=== PATIENT | male | born 1970 | race African-American/Black ===

== ENCOUNTER 2018-04-20 19:25 | Inpatient (IN) | payer SELFPAY ==
[~2018-04-20] VITALS: Ht 177.8 cm; Wt 71.7 kg
[2018-04-20] MEDS ORDERED: HYDRALAZINE 20MG/ML VIAL IV ONE ×2 (19:45→21:15)
[2018-04-20] MEDS ORDERED: METOCLOPRAMIDE HCL 10MG/2ML VIAL IV ONE (20:15)
[2018-04-20] MEDS ORDERED: DIPHENHYDRAMINE 50MG/ML VIAL IV ONE (20:15)
[2018-04-20] MEDS ORDERED: KETOROLAC 15MG/ML VIAL IV ONE (20:15)
[2018-04-20 20:30] LABS: HEMATOCRIT. 34.1 % (42.0-52.0); HEMOGLOBIN. 10.5 g/dL (14.0-18.0); MEAN CORPUSCULAR HEMOGLOBIN 22.8 pg (28.0-32.0); MEAN PLATELET VOLUME 9.1 fl (7.4-10.4); PLATELET 201 x1000/uL (130-400); RED CELL DISTRIBUTION WIDTH 14.4 % (11.6-14.6)
[2018-04-20 20:36] LABS: CHLORIDE 111 mEq/L (98-107)
[2018-04-20 21:07] LABS: PLATELET ESTIMATE NORMAL
[2018-04-20] MEDS ORDERED: ASPIRIN 81MG TABLET PO ONE (21:15)
[2018-04-20] MEDS ORDERED: CLONIDINE 0.2MG TABLET PO ONE (22:15)
[2018-04-21] VITALS (12 sets, daily range): BP systolic 146–183; BP diastolic 71–109
[2018-04-21] MEDS ORDERED: ONDANSETRON HCL 4MG/2ML INJ IV PRN (01:00)
[2018-04-21] MEDS ORDERED: DIPHENHYDRAMINE 50MG/ML VIAL IV PRN (01:00)
[2018-04-21] MEDS ORDERED: HYDRALAZINE 20MG/ML VIAL IV PRN (01:00)
[2018-04-21] MEDS ORDERED: MAGNESIUM/ALUMINUM HYDROXIDE/SIMETHICONE 30ML UDC PO PRN (01:00)
[2018-04-21] MEDS: LOSARTAN POTASSIUM 100 MG TABLET PO SCH ×2 (01:51→08:48)
[2018-04-21] MEDS: NIFEDIPINE XL 90MG TAB PO SCH ×2 (01:51→08:48)
[2018-04-21] MEDS: LABETALOL HCL 100MG TABLET PO SCH ×3 (01:51→21:22)
[2018-04-21] MEDS: SODIUM CHLORIDE 0.9% INJ 3ML FLUSH IVF SCH ×3 (05:40→21:26)
[2018-04-21] MEDS: MECLIZINE 25MG TABLET PO PRN (13:42)
[2018-04-21] MEDS: ASPIRIN 81MG EC TABLET PO SCH (18:57)
[2018-04-21] MEDS: FAMOTIDINE 20MG TABLET PO SCH (21:22)
[2018-04-22] VITALS (12 sets, daily range): BP systolic 130–176; BP diastolic 72–110
[2018-04-22] MEDS: SODIUM CHLORIDE 0.9% INJ 3ML FLUSH IVF SCH ×3 (06:47→22:24)
[2018-04-22] MEDS: LOSARTAN POTASSIUM 100 MG TABLET PO SCH (08:07)
[2018-04-22] MEDS: NIFEDIPINE XL 90MG TAB PO SCH (08:07)
[2018-04-22] MEDS: ASPIRIN 81MG EC TABLET PO SCH (08:07)
[2018-04-22] MEDS: LABETALOL HCL 100MG TABLET PO SCH ×2 (08:07→20:49)
[2018-04-22 08:17] LABS: BASOPHILS % 0.7 % (0.0-2.0); EOSINOPHILS % 1.9 % (0.0-5.0); HEMATOCRIT. 33.9 % (42.0-52.0); HEMOGLOBIN. 10.7 g/dL (14.0-18.0); LYMPHOCYTES % 18.6 % (20.0-50.0); MEAN CORPUSCULAR HEMOGLOBIN 23.3 pg (28.0-32.0); MEAN CORPUSCULAR VOLUME 73.9 fL (80.0-94.0); MEAN PLATELET VOLUME 9.6 fl (7.4-10.4); MONOCYTES % 7.7 % (2.0-8.0); NEUTROPHILS % 71.1 % (40.0-76.0); PLATELET 197 x1000/uL (130-400); RED BLOOD CELL COUNT 4.59 mill/uL (4.7-6.1); RED CELL DISTRIBUTION WIDTH 14.5 % (11.6-14.6)
[2018-04-22 08:40] LABS: CHLORIDE 108 mEq/L (98-107)
[2018-04-22] MEDS ORDERED: ASPIRIN 81MG EC TABLET PO SCH (09:00)
[2018-04-22] MEDS: MECLIZINE 25MG TABLET PO PRN (09:57)
[2018-04-22] MEDS: SEVELAMER CARBONATE 800 MG TABLET PO SCH ×2 (11:22→17:27)
[2018-04-22] MEDS: HYDRALAZINE HCL 25MG TABLET PO SCH ×2 (14:56→22:24)
[2018-04-22] MEDS: ENOXAPARIN 30MG/0.3ML SYR SUBCUT SCH (17:33)
[2018-04-22] MEDS: ACETAMINOPHEN 325MG TABLET PO PRN (19:43)
[2018-04-22] MEDS: FAMOTIDINE 20MG TABLET PO SCH (20:48)
[2018-04-22] MEDS: ATORVASTATIN CALCIUM 40MG TABLET PO SCH (20:48)
[2018-04-22] MEDS ORDERED: HYDRALAZINE HCL 50MG TABLET PO SCH (21:00)
[2018-04-23] VITALS (13 sets, daily range): BP systolic 136–170; BP diastolic 76–98
[2018-04-23] MEDS: HYDRALAZINE HCL 25MG TABLET PO SCH (06:18)
[2018-04-23] MEDS: SODIUM CHLORIDE 0.9% INJ 3ML FLUSH IVF SCH ×3 (06:18→22:07)
[2018-04-23 07:40] LABS: BASOPHILS % 0.6 % (0.0-2.0); EOSINOPHILS % 2.6 % (0.0-5.0); HEMATOCRIT. 33.8 % (42.0-52.0); HEMOGLOBIN. 10.6 g/dL (14.0-18.0); MEAN CORPUSCULAR HEMOGLOBIN 23.4 pg (28.0-32.0); MEAN CORPUSCULAR VOLUME 74.5 fL (80.0-94.0); MEAN PLATELET VOLUME 9.5 fl (7.4-10.4); MONOCYTES % 8.7 % (2.0-8.0); NEUTROPHILS % 64.1 % (40.0-76.0); PLATELET 183 x1000/uL (130-400); RED BLOOD CELL COUNT 4.54 mill/uL (4.7-6.1); RED CELL DISTRIBUTION WIDTH 14.1 % (11.6-14.6)
[2018-04-23] MEDS: NIFEDIPINE XL 90MG TAB PO SCH (08:10)
[2018-04-23] MEDS: ASPIRIN 81MG EC TABLET PO SCH (08:10)
[2018-04-23] MEDS: SEVELAMER CARBONATE 800 MG TABLET PO SCH ×3 (08:10→17:24)
[2018-04-23] MEDS: LABETALOL HCL 100MG TABLET PO SCH ×2 (08:11→21:16)
[2018-04-23 08:18] LABS: PHOSPHORUS 4.8 mg/dL (2.5-4.9)
[2018-04-23] MEDS: HYDRALAZINE HCL 50MG TABLET PO SCH ×2 (12:09→13:19)
[2018-04-23] MEDS: CALCIUM ACETATE 667MG CAPSULE PO SCH ×2 (12:09→17:24)
[2018-04-23] MEDS: CLONIDINE 0.2MG TABLET PO PRN (13:16)
[2018-04-23] MEDS: MECLIZINE 25MG TABLET PO PRN (14:35)
[2018-04-23] MEDS: ENOXAPARIN 30MG/0.3ML SYR SUBCUT SCH (17:24)
[2018-04-23] MEDS: ACETAMINOPHEN 325MG TABLET PO PRN (19:18)
[2018-04-23] MEDS: ATORVASTATIN CALCIUM 40MG TABLET PO SCH (21:15)
[2018-04-23] MEDS: FAMOTIDINE 20MG TABLET PO SCH (21:16)
[2018-04-23] MEDS: HYDRALAZINE HCL 100MG TABLET PO SCH (22:08)
[2018-04-24] VITALS (12 sets, daily range): BP systolic 147–161; BP diastolic 78–98
[2018-04-24] MEDS: HYDRALAZINE HCL 100MG TABLET PO SCH ×3 (06:16→21:49)
[2018-04-24] MEDS: SODIUM CHLORIDE 0.9% INJ 3ML FLUSH IVF SCH ×3 (06:17→21:21)
[2018-04-24 06:57] LABS: BASOPHILS % 0.7 % (0.0-2.0); HEMATOCRIT. 32.3 % (42.0-52.0); HEMOGLOBIN. 10.2 g/dL (14.0-18.0); LYMPHOCYTES % 25.8 % (20.0-50.0); MEAN CORPUSCULAR HEMOGLOBIN 23.1 pg (28.0-32.0); MEAN CORPUSCULAR VOLUME 73.1 fL (80.0-94.0); MEAN PLATELET VOLUME 9.1 fl (7.4-10.4); MONOCYTES % 9.6 % (2.0-8.0); NEUTROPHILS % 60.9 % (40.0-76.0); PLATELET 169 x1000/uL (130-400); RED BLOOD CELL COUNT 4.41 mill/uL (4.7-6.1); RED CELL DISTRIBUTION WIDTH 14.1 % (11.6-14.6)
[2018-04-24 08:46] LABS: PHOSPHORUS 4.6 mg/dL (2.5-4.9)
[2018-04-24] MEDS: NIFEDIPINE XL 90MG TAB PO SCH (09:14)
[2018-04-24] MEDS: SEVELAMER CARBONATE 800 MG TABLET PO SCH ×3 (09:14→17:17)
[2018-04-24] MEDS: ASPIRIN 81MG EC TABLET PO SCH (09:14)
[2018-04-24] MEDS: CALCIUM ACETATE 667MG CAPSULE PO SCH ×3 (09:14→17:17)
[2018-04-24] MEDS: LABETALOL HCL 100MG TABLET PO SCH ×2 (09:15→21:20)
[2018-04-24] MEDS: MECLIZINE 25MG TABLET PO PRN (11:23)
[2018-04-24] MEDS: CLONIDINE 0.2MG TABLET PO PRN (15:32)
[2018-04-24] MEDS: ENOXAPARIN 30MG/0.3ML SYR SUBCUT SCH (16:10)
[2018-04-24] MEDS: FAMOTIDINE 20MG TABLET PO SCH (21:19)
[2018-04-24] MEDS: ATORVASTATIN CALCIUM 40MG TABLET PO SCH (21:19)
[2018-04-25] VITALS (10 sets, daily range): BP systolic 130–155; BP diastolic 69–87
[2018-04-25] MEDS: HYDRALAZINE HCL 100MG TABLET PO SCH ×3 (06:39→21:11)
[2018-04-25] MEDS: SODIUM CHLORIDE 0.9% INJ 3ML FLUSH IVF SCH ×3 (06:40→21:23)
[2018-04-25 06:56] LABS: BASOPHILS % 0.5 % (0.0-2.0); EOSINOPHILS % 3.1 % (0.0-5.0); HEMATOCRIT. 30.5 % (42.0-52.0); HEMOGLOBIN. 9.8 g/dL (14.0-18.0); LYMPHOCYTES % 25.1 % (20.0-50.0); MEAN CORPUSCULAR HEMOGLOBIN 23.4 pg (28.0-32.0); MEAN CORPUSCULAR VOLUME 73.1 fL (80.0-94.0); MEAN PLATELET VOLUME 9.5 fl (7.4-10.4); MONOCYTES % 10.9 % (2.0-8.0); NEUTROPHILS % 60.4 % (40.0-76.0); PLATELET 173 x1000/uL (130-400); RED BLOOD CELL COUNT 4.17 mill/uL (4.7-6.1); RED CELL DISTRIBUTION WIDTH 14.2 % (11.6-14.6)
[2018-04-25] MEDS: ASPIRIN 81MG EC TABLET PO SCH (07:51)
[2018-04-25] MEDS: SEVELAMER CARBONATE 800 MG TABLET PO SCH ×3 (07:51→17:15)
[2018-04-25] MEDS: CALCIUM ACETATE 667MG CAPSULE PO SCH ×3 (07:51→17:15)
[2018-04-25] MEDS: NIFEDIPINE XL 90MG TAB PO SCH (07:51)
[2018-04-25] MEDS: LABETALOL HCL 100MG TABLET PO SCH (07:52)
[2018-04-25] MEDS: MECLIZINE 25MG TABLET PO PRN ×2 (08:00→21:10)
[2018-04-25 10:54] LABS: TOTAL IRON BINDING CAPACITY 164 ug/dL (250-450)
[2018-04-25 11:17] LABS: FOLIC ACID (FOLATE) SERUM 11.3 ng/mL (>5.38)
[2018-04-25] MEDS: ACETAMINOPHEN 325MG TABLET PO PRN (17:59)
[2018-04-25] MEDS: ENOXAPARIN 30MG/0.3ML SYR SUBCUT SCH (18:01)
[2018-04-25] MEDS ORDERED: IBUPROFEN 600MG TABLET PO PRN (18:15)
[2018-04-25] MEDS: ATORVASTATIN CALCIUM 40MG TABLET PO SCH (21:10)
[2018-04-25] MEDS: FAMOTIDINE 20MG TABLET PO SCH (21:10)
[2018-04-26] VITALS: BP 128/65
[2018-04-26 04:00] VITALS: BP 148/79
[2018-04-26] MEDS: SODIUM CHLORIDE 0.9% INJ 3ML FLUSH IVF SCH ×3 (06:12→21:36)
[2018-04-26] MEDS: HYDRALAZINE HCL 100MG TABLET PO SCH ×3 (06:12→21:40)
[2018-04-26 06:54] LABS: BASOPHILS % 0.4 % (0.0-2.0); HEMATOCRIT. 32.7 % (42.0-52.0); HEMOGLOBIN. 10.3 g/dL (14.0-18.0); LYMPHOCYTES % 20.8 % (20.0-50.0); MEAN CORPUSCULAR HEMOGLOBIN 23.1 pg (28.0-32.0); MEAN CORPUSCULAR VOLUME 73.6 fL (80.0-94.0); MEAN PLATELET VOLUME 9.6 fl (7.4-10.4); MONOCYTES % 10.5 % (2.0-8.0); NEUTROPHILS % 65.3 % (40.0-76.0); PLATELET 182 x1000/uL (130-400); RED BLOOD CELL COUNT 4.45 mill/uL (4.7-6.1)
[2018-04-26 08:00] VITALS: BP 143/74
[2018-04-26] MEDS: CALCIUM ACETATE 667MG CAPSULE PO SCH ×3 (08:39→18:18)
[2018-04-26] MEDS: SEVELAMER CARBONATE 800 MG TABLET PO SCH ×3 (08:39→18:18)
[2018-04-26] MEDS: ASPIRIN 81MG EC TABLET PO SCH (08:40)
[2018-04-26] MEDS: LABETALOL HCL 200MG TABLET PO SCH ×2 (08:40→20:57)
[2018-04-26] MEDS: NIFEDIPINE XL 90MG TAB PO SCH (08:42)
[2018-04-26 12:00] VITALS: BP_SYST 163; BP_SYST 168; BP_DIAS 89; BP_DIAS 91
[2018-04-26] MEDS: SODIUM POLYSTYRENE SULFONATE 15 G/60 ML BOT PO SCH (12:50)
[2018-04-26 16:00] VITALS: BP 188/88
[2018-04-26] MEDS: ENOXAPARIN 30MG/0.3ML SYR SUBCUT SCH (17:13)
[2018-04-26] MEDS: CLONIDINE 0.2MG TABLET PO PRN (17:13)
[2018-04-26 20:00] VITALS: BP 159/87
[2018-04-26] MEDS: ATORVASTATIN CALCIUM 40MG TABLET PO SCH (20:56)
[2018-04-26] MEDS: FAMOTIDINE 20MG TABLET PO SCH (20:56)
[2018-04-26] MEDS: MECLIZINE 25MG TABLET PO PRN (20:57)
[2018-04-27] VITALS (19 sets, daily range): BP systolic 125–188; BP diastolic 73–105
[2018-04-27] MEDS: SODIUM CHLORIDE 0.9% INJ 3ML FLUSH IVF SCH (05:39)
[2018-04-27] MEDS: HYDRALAZINE HCL 100MG TABLET PO SCH (05:40)
[2018-04-27 06:08] LABS: BASOPHILS % 0.5 % (0.0-2.0); EOSINOPHILS % 2.7 % (0.0-5.0); HEMATOCRIT. 30.9 % (42.0-52.0); HEMOGLOBIN. 9.8 g/dL (14.0-18.0); MEAN CORPUSCULAR HEMOGLOBIN 23.3 pg (28.0-32.0); MEAN CORPUSCULAR VOLUME 73.6 fL (80.0-94.0); MEAN PLATELET VOLUME 9.6 fl (7.4-10.4); MONOCYTES % 11.7 % (2.0-8.0); NEUTROPHILS % 62.1 % (40.0-76.0); PLATELET 165 x1000/uL (130-400)
[2018-04-27 06:14] LABS: PHOSPHORUS 5.2 mg/dL (2.5-4.9)
[2018-04-27] MEDS: LABETALOL HCL 200MG TABLET PO SCH (08:16)
[2018-04-27] MEDS: SEVELAMER CARBONATE 800 MG TABLET PO SCH (08:17)
[2018-04-27] MEDS: ASPIRIN 81MG EC TABLET PO SCH (08:17)
[2018-04-27] MEDS: CALCIUM ACETATE 667MG CAPSULE PO SCH (08:17)
[2018-04-27] MEDS: NIFEDIPINE XL 90MG TAB PO SCH (08:17)
[2018-04-27 12:27] LABS: PROTHROMBIN TIME 9.6 sec (9.1-11.1)
[2018-04-27] MEDS ORDERED: FENTANYL CITRATE/PF 50MCG/ML 2ML VIAL ONE (13:07)
[2018-04-27] MEDS ORDERED: SODIUM BICARBONATE 4% (2.4MEQ) 5ML VIAL IV ONE (13:07)
[2018-04-27] MEDS ORDERED: CEFAZOLIN 1000MG PREMIX 50 ML IV ONE (13:07)
[2018-04-27] MEDS ORDERED: LIDOCAINE HCL 1% 20ML VIAL (Pyxis) INJ ONE (13:07)
[2018-04-27] MEDS ORDERED: LIDOCAINE HCL/EPINEPHRINE 1%-EPI 1:100,000 20 ML VIAL ONE (13:37)
[2018-04-27] MEDS ORDERED: CEFAZOLIN 1000MG PREMIX 50 ML IV SCH (14:00)
[2018-04-27] MEDS ORDERED: FENTANYL CITRATE/PF 50MCG/ML 2ML VIAL IV ONE (14:00)
[2018-04-27] MEDS: ACETAMINOPHEN 325MG TABLET PO PRN (17:55)
[2018-04-28] VITALS (7 sets, daily range): BP systolic 142–184; BP diastolic 84–94
[2018-04-28] MEDS: ATORVASTATIN CALCIUM 40MG TABLET PO SCH ×2 (00:45→20:24)
[2018-04-28] MEDS: FAMOTIDINE 20MG TABLET PO SCH ×2 (00:46→20:24)
[2018-04-28] MEDS: LABETALOL HCL 200MG TABLET PO SCH ×3 (00:47→20:24)
[2018-04-28 07:24] LABS: BASOPHILS % 0.5 % (0.0-2.0); HEMATOCRIT. 31.1 % (42.0-52.0); HEMOGLOBIN. 9.9 g/dL (14.0-18.0); LYMPHOCYTES % 19.2 % (20.0-50.0); MEAN CORPUSCULAR HEMOGLOBIN 23.9 pg (28.0-32.0); MEAN CORPUSCULAR VOLUME 75.2 fL (80.0-94.0); MEAN PLATELET VOLUME 9.7 fl (7.4-10.4); MONOCYTES % 12.9 % (2.0-8.0); NEUTROPHILS % 65.4 % (40.0-76.0); PLATELET 152 x1000/uL (130-400); RED BLOOD CELL COUNT 4.13 mill/uL (4.7-6.1); RED CELL DISTRIBUTION WIDTH 13.6 % (11.6-14.6)
[2018-04-28] MEDS: SEVELAMER CARBONATE 800 MG TABLET PO SCH ×4 (08:10→18:02)
[2018-04-28] MEDS: CALCIUM ACETATE 667MG CAPSULE PO SCH ×4 (08:10→18:02)
[2018-04-28 08:26] LABS: PHOSPHORUS 4.6 mg/dL (2.5-4.9)
[2018-04-28] MEDS: ASPIRIN 81MG EC TABLET PO SCH (09:29)
[2018-04-28] MEDS: NIFEDIPINE XL 90MG TAB PO SCH (09:29)
[2018-04-28] MEDS ORDERED: GELATIN SPONGE,ABSORBABLE 12-7MM SPONGE ONE (10:51)
[2018-04-28] MEDS: SODIUM POLYSTYRENE SULFONATE 15 G/60 ML BOT PO SCH (11:03)
[2018-04-28] MEDS: SODIUM CHLORIDE 0.9% INJ 3ML FLUSH IVF SCH ×2 (14:00→22:12)
[2018-04-28] MEDS: ENOXAPARIN 30MG/0.3ML SYR SUBCUT SCH ×2 (17:00→18:03)
[2018-04-28] MEDS: MINOXIDIL 2.5MG TABLET PO SCH (20:24)
[2018-04-29] VITALS: BP 156/87
[2018-04-29 04:00] VITALS: BP 153/85
[2018-04-29] MEDS: SODIUM CHLORIDE 0.9% INJ 3ML FLUSH IVF SCH ×3 (06:41→21:02)
[2018-04-29 07:29] LABS: HEPATITIS B SURFACE ANTIGEN NEGATIVE
[2018-04-29 07:57] LABS: HEPATITIS B CORE AB IGM NEGATIVE
[2018-04-29 07:59] LABS: HEPATITIS A AB IGM NEGATIVE (NEGATIVE)
[2018-04-29 08:00] VITALS: BP 133/80
[2018-04-29] MEDS: CALCIUM ACETATE 667MG CAPSULE PO SCH ×3 (08:22→18:37)
[2018-04-29] MEDS: NIFEDIPINE XL 90MG TAB PO SCH (08:22)
[2018-04-29] MEDS: LABETALOL HCL 200MG TABLET PO SCH ×2 (08:22→21:01)
[2018-04-29] MEDS: ASPIRIN 81MG EC TABLET PO SCH (08:22)
[2018-04-29] MEDS: MINOXIDIL 2.5MG TABLET PO SCH ×2 (08:22→20:59)
[2018-04-29] MEDS: SEVELAMER CARBONATE 800 MG TABLET PO SCH ×3 (08:22→18:37)
[2018-04-29 12:00] VITALS: BP 152/86
[2018-04-29 16:00] VITALS: BP 151/83
[2018-04-29 20:09] VITALS: BP 166/92
[2018-04-29] MEDS: FAMOTIDINE 20MG TABLET PO SCH (21:00)
[2018-04-29] MEDS: ATORVASTATIN CALCIUM 40MG TABLET PO SCH (21:00)
[2018-04-30 00:09] VITALS: BP 144/70
[2018-04-30 04:18] VITALS: BP 115/63
[2018-04-30] MEDS: SODIUM CHLORIDE 0.9% INJ 3ML FLUSH IVF SCH ×3 (05:50→21:10)
[2018-04-30 07:04] LABS: HEMATOCRIT. 27.4 % (42.0-52.0); HEMOGLOBIN. 8.8 g/dL (14.0-18.0); MEAN CORPUSCULAR HEMOGLOBIN 23.7 pg (28.0-32.0); MEAN CORPUSCULAR VOLUME 73.6 fL (80.0-94.0); MEAN PLATELET VOLUME 9.7 fl (7.4-10.4); PLATELET 131 x1000/uL (130-400); RED BLOOD CELL COUNT 3.72 mill/uL (4.7-6.1); RED CELL DISTRIBUTION WIDTH 13.6 % (11.6-14.6)
[2018-04-30 07:58] LABS: PHOSPHORUS 4.7 mg/dL (2.5-4.9)
[2018-04-30 08:00] VITALS: BP 115/63
[2018-04-30] MEDS: MINOXIDIL 2.5MG TABLET PO SCH (08:46)
[2018-04-30] MEDS: NIFEDIPINE XL 90MG TAB PO SCH (08:47)
[2018-04-30] MEDS: LABETALOL HCL 200MG TABLET PO SCH ×2 (08:47→21:10)
[2018-04-30] MEDS: ASPIRIN 81MG EC TABLET PO SCH (08:53)
[2018-04-30] MEDS: SEVELAMER CARBONATE 800 MG TABLET PO SCH (08:53)
[2018-04-30] MEDS: CALCIUM ACETATE 667MG CAPSULE PO SCH ×3 (08:53→17:52)
[2018-04-30 14:16] LABS: PLATELET ESTIMATE NORMAL
[2018-04-30 20:00] VITALS: BP 173/89
[2018-04-30] MEDS: ATORVASTATIN CALCIUM 40MG TABLET PO SCH (21:10)
[2018-04-30] MEDS: FAMOTIDINE 20MG TABLET PO SCH (21:10)
[2018-05-01] VITALS: BP 172/101
[2018-05-01 04:00] VITALS: BP 150/79
[2018-05-01] MEDS: SODIUM CHLORIDE 0.9% INJ 3ML FLUSH IVF SCH ×3 (05:20→21:14)
[2018-05-01 08:00] VITALS: BP 159/82
[2018-05-01 08:22] LABS: HEMATOCRIT. 26.6 % (42.0-52.0); HEMOGLOBIN. 8.5 g/dL (14.0-18.0); MEAN CORPUSCULAR HEMOGLOBIN 23.4 pg (28.0-32.0); MEAN CORPUSCULAR VOLUME 73.3 fL (80.0-94.0); MEAN PLATELET VOLUME 9.8 fl (7.4-10.4); PLATELET 139 x1000/uL (130-400); RED BLOOD CELL COUNT 3.64 mill/uL (4.7-6.1); RED CELL DISTRIBUTION WIDTH 13.6 % (11.6-14.6)
[2018-05-01] MEDS: NIFEDIPINE XL 90MG TAB PO SCH (08:58)
[2018-05-01] MEDS: CALCIUM ACETATE 667MG CAPSULE PO SCH ×3 (08:58→18:35)
[2018-05-01] MEDS: ASPIRIN 81MG EC TABLET PO SCH (08:59)
[2018-05-01] MEDS: LABETALOL HCL 200MG TABLET PO SCH ×2 (08:59→20:49)
[2018-05-01] MEDS ORDERED: MINOXIDIL 2.5MG TABLET PO SCH (09:00)
[2018-05-01 09:45] LABS: PHOSPHORUS 3.6 mg/dL (2.5-4.9)
[2018-05-01 12:00] VITALS: BP 140/74
[2018-05-01 14:03] LABS: PLATELET ESTIMATE NORMAL
[2018-05-01 16:00] VITALS: BP 140/74
[2018-05-01] MEDS: MINOXIDIL 2.5MG TABLET PO SCH (18:37)
[2018-05-01 20:00] VITALS: BP 133/67
[2018-05-01] MEDS: ATORVASTATIN CALCIUM 40MG TABLET PO SCH (20:49)
[2018-05-01] MEDS: FAMOTIDINE 20MG TABLET PO SCH (20:49)
[2018-05-02] VITALS: BP 107/68
[2018-05-02 04:00] VITALS: BP 118/57
[2018-05-02] MEDS: SODIUM CHLORIDE 0.9% INJ 3ML FLUSH IVF SCH ×3 (05:27→21:34)
[2018-05-02] MEDS: MINOXIDIL 2.5MG TABLET PO SCH ×2 (05:27→18:10)
[2018-05-02 07:14] LABS: BASOPHILS % 0.6 % (0.0-2.0); EOSINOPHILS % 3.2 % (0.0-5.0); HEMATOCRIT. 26.7 % (42.0-52.0); HEMOGLOBIN. 8.6 g/dL (14.0-18.0); LYMPHOCYTES % 28.7 % (20.0-50.0); MEAN CORPUSCULAR HEMOGLOBIN 23.7 pg (28.0-32.0); MEAN CORPUSCULAR VOLUME 73.8 fL (80.0-94.0); MEAN PLATELET VOLUME 10.3 fl (7.4-10.4); MONOCYTES % 14.2 % (2.0-8.0); NEUTROPHILS % 53.3 % (40.0-76.0); PLATELET 142 x1000/uL (130-400); RED BLOOD CELL COUNT 3.62 mill/uL (4.7-6.1); RED CELL DISTRIBUTION WIDTH 13.9 % (11.6-14.6)
[2018-05-02 08:00] VITALS: BP 120/69
[2018-05-02] MEDS: ASPIRIN 81MG EC TABLET PO SCH (09:02)
[2018-05-02] MEDS: CALCIUM ACETATE 667MG CAPSULE PO SCH ×3 (09:02→18:09)
[2018-05-02] MEDS: LABETALOL HCL 200MG TABLET PO SCH ×2 (09:02→21:24)
[2018-05-02 10:59] LABS: PHOSPHORUS 4.2 mg/dL (2.5-4.9)
[2018-05-02 12:00] VITALS: BP 145/78
[2018-05-02 16:00] VITALS: BP 150/65
[2018-05-02] MEDS: CLONIDINE 0.2MG TABLET PO PRN (18:10)
[2018-05-02 20:00] VITALS: BP 129/72
[2018-05-02] MEDS: FAMOTIDINE 20MG TABLET PO SCH (21:00)
[2018-05-02] MEDS: ATORVASTATIN CALCIUM 40MG TABLET PO SCH (21:24)
[2018-05-03] VITALS: BP 136/74
[2018-05-03 04:00] VITALS: BP 135/73
[2018-05-03] MEDS: SODIUM CHLORIDE 0.9% INJ 3ML FLUSH IVF SCH ×3 (05:17→21:55)
[2018-05-03] MEDS: MINOXIDIL 2.5MG TABLET PO SCH ×2 (05:17→17:43)
[2018-05-03 07:13] LABS: BASOPHILS % 0.5 % (0.0-2.0); EOSINOPHILS % 3.9 % (0.0-5.0); HEMATOCRIT. 26.6 % (42.0-52.0); HEMOGLOBIN. 8.6 g/dL (14.0-18.0); LYMPHOCYTES % 26.2 % (20.0-50.0); MEAN CORPUSCULAR HEMOGLOBIN 23.9 pg (28.0-32.0); MEAN CORPUSCULAR VOLUME 74.3 fL (80.0-94.0); MEAN PLATELET VOLUME 9.9 fl (7.4-10.4); MONOCYTES % 12.9 % (2.0-8.0); NEUTROPHILS % 56.5 % (40.0-76.0); PLATELET 137 x1000/uL (130-400); RED BLOOD CELL COUNT 3.59 mill/uL (4.7-6.1); RED CELL DISTRIBUTION WIDTH 13.5 % (11.6-14.6)
[2018-05-03 08:00] VITALS: BP 133/71
[2018-05-03] MEDS: ASPIRIN 81MG EC TABLET PO SCH (09:41)
[2018-05-03] MEDS: CALCIUM ACETATE 667MG CAPSULE PO SCH ×3 (09:41→17:43)
[2018-05-03] MEDS: LABETALOL HCL 200MG TABLET PO SCH ×2 (09:41→21:55)
[2018-05-03 12:00] VITALS: BP 138/73
[2018-05-03 16:00] VITALS: BP 142/75
[2018-05-03 20:00] VITALS: BP 150/84
[2018-05-03] MEDS: ATORVASTATIN CALCIUM 40MG TABLET PO SCH (21:55)
[2018-05-03] MEDS: FAMOTIDINE 20MG TABLET PO SCH (21:55)
[2018-05-04 04:00] VITALS: BP 151/79
[2018-05-04] MEDS: SODIUM CHLORIDE 0.9% INJ 3ML FLUSH IVF SCH ×3 (06:34→22:15)
[2018-05-04] MEDS: MINOXIDIL 2.5MG TABLET PO SCH ×2 (06:35→18:40)
[2018-05-04 08:00] VITALS: BP 138/81
[2018-05-04] MEDS: CALCIUM ACETATE 667MG CAPSULE PO SCH ×3 (08:10→18:39)
[2018-05-04] MEDS: ASPIRIN 81MG EC TABLET PO SCH (09:00)
[2018-05-04] MEDS: LABETALOL HCL 200MG TABLET PO SCH ×2 (09:00→22:14)
[2018-05-04 12:00] VITALS: BP 144/81
[2018-05-04 20:00] VITALS: BP 146/79
[2018-05-04] MEDS: EPOETIN ALFA 4000UNITS/ML VIAL SUBCUT SCH (22:13)
[2018-05-04] MEDS: ATORVASTATIN CALCIUM 40MG TABLET PO SCH (22:15)
[2018-05-04] MEDS: FAMOTIDINE 20MG TABLET PO SCH (22:15)
[2018-05-05] VITALS (7 sets, daily range): BP systolic 120–147; BP diastolic 68–77
[2018-05-05] MEDS: MINOXIDIL 2.5MG TABLET PO SCH ×2 (05:46→18:57)
[2018-05-05] MEDS: SODIUM CHLORIDE 0.9% INJ 3ML FLUSH IVF SCH ×3 (05:47→21:02)
[2018-05-05] MEDS: ASPIRIN 81MG EC TABLET PO SCH (08:14)
[2018-05-05] MEDS: LABETALOL HCL 200MG TABLET PO SCH ×2 (08:19→20:59)
[2018-05-05] MEDS: CALCIUM ACETATE 667MG CAPSULE PO SCH ×3 (08:19→17:48)
[2018-05-05] MEDS: FAMOTIDINE 20MG TABLET PO SCH (20:50)
[2018-05-05] MEDS: ATORVASTATIN CALCIUM 40MG TABLET PO SCH (20:50)
[2018-05-06 03:57] VITALS: BP 126/75
[2018-05-06] MEDS: SODIUM CHLORIDE 0.9% INJ 3ML FLUSH IVF SCH ×3 (05:38→21:08)
[2018-05-06] MEDS: MINOXIDIL 2.5MG TABLET PO SCH ×2 (05:39→16:59)
[2018-05-06 08:00] VITALS: BP 126/65
[2018-05-06] MEDS: ASPIRIN 81MG EC TABLET PO SCH (08:12)
[2018-05-06] MEDS: CALCIUM ACETATE 667MG CAPSULE PO SCH ×3 (08:12→16:59)
[2018-05-06] MEDS: LABETALOL HCL 200MG TABLET PO SCH ×2 (08:28→21:08)
[2018-05-06 12:00] VITALS: BP 126/66
[2018-05-06 16:00] VITALS: BP 128/66
[2018-05-06 20:00] VITALS: BP 150/79
[2018-05-06] MEDS: ATORVASTATIN CALCIUM 40MG TABLET PO SCH (21:08)
[2018-05-06] MEDS: FAMOTIDINE 20MG TABLET PO SCH (21:08)
[2018-05-07] VITALS: BP 139/68
[2018-05-07 04:00] VITALS: BP 139/76
[2018-05-07] MEDS: SODIUM CHLORIDE 0.9% INJ 3ML FLUSH IVF SCH ×3 (05:12→21:08)
[2018-05-07] MEDS: MINOXIDIL 2.5MG TABLET PO SCH ×2 (05:28→18:00)
[2018-05-07 06:11] LABS: BASOPHILS % 0.7 % (0.0-2.0); EOSINOPHILS % 4.5 % (0.0-5.0); HEMATOCRIT. 26.4 % (42.0-52.0); HEMOGLOBIN. 8.5 g/dL (14.0-18.0); LYMPHOCYTES % 26.1 % (20.0-50.0); MEAN CORPUSCULAR HEMOGLOBIN 23.7 pg (28.0-32.0); MEAN CORPUSCULAR VOLUME 73.2 fL (80.0-94.0); MONOCYTES % 12.1 % (2.0-8.0); NEUTROPHILS % 56.6 % (40.0-76.0); PLATELET 146 x1000/uL (130-400); RED BLOOD CELL COUNT 3.61 mill/uL (4.7-6.1); RED CELL DISTRIBUTION WIDTH 13.7 % (11.6-14.6)
[2018-05-07 07:58] LABS: PHOSPHORUS 4.8 mg/dL (2.5-4.9)
[2018-05-07 08:00] VITALS: BP 145/72
[2018-05-07] MEDS: ASPIRIN 81MG EC TABLET PO SCH (09:13)
[2018-05-07] MEDS: LABETALOL HCL 200MG TABLET PO SCH ×2 (09:13→22:17)
[2018-05-07] MEDS: CALCIUM ACETATE 667MG CAPSULE PO SCH ×3 (09:26→18:10)
[2018-05-07 12:00] VITALS: BP 136/75
[2018-05-07 16:00] VITALS: BP 136/63
[2018-05-07 20:00] VITALS: BP 167/87
[2018-05-07] MEDS: EPOETIN ALFA 4000UNITS/ML VIAL SUBCUT SCH (22:16)
[2018-05-07] MEDS: ATORVASTATIN CALCIUM 40MG TABLET PO SCH (22:16)
[2018-05-07] MEDS: FAMOTIDINE 20MG TABLET PO SCH (22:17)
[2018-05-08] VITALS: BP 131/73
[2018-05-08 04:00] VITALS: BP 134/72
[2018-05-08] MEDS: SODIUM CHLORIDE 0.9% INJ 3ML FLUSH IVF SCH ×2 (05:48→21:11)
[2018-05-08] MEDS: MINOXIDIL 2.5MG TABLET PO SCH ×2 (05:58→17:40)
[2018-05-08 08:00] VITALS: BP 145/76
[2018-05-08] MEDS: CALCIUM ACETATE 667MG CAPSULE PO SCH ×3 (08:53→17:39)
[2018-05-08] MEDS: ASPIRIN 81MG EC TABLET PO SCH (08:53)
[2018-05-08] MEDS: LABETALOL HCL 200MG TABLET PO SCH ×2 (08:54→21:11)
[2018-05-08] MEDS: MECLIZINE 25MG TABLET PO PRN (08:56)
[2018-05-08 12:00] VITALS: BP 150/94
[2018-05-08 16:00] VITALS: BP 169/73
[2018-05-08] MEDS: ACETAMINOPHEN 325MG TABLET PO PRN (16:45)
[2018-05-08 20:00] VITALS: BP 158/81
[2018-05-08] MEDS: FAMOTIDINE 20MG TABLET PO SCH (21:10)
[2018-05-08] MEDS: ATORVASTATIN CALCIUM 40MG TABLET PO SCH (21:11)
[2018-05-09] VITALS (7 sets, daily range): BP systolic 125–144; BP diastolic 61–76
[2018-05-09] MEDS: MINOXIDIL 2.5MG TABLET PO SCH ×2 (05:41→17:54)
[2018-05-09] MEDS: SODIUM CHLORIDE 0.9% INJ 3ML FLUSH IVF SCH ×3 (06:37→21:10)
[2018-05-09 07:28] LABS: BASOPHILS % 0.9 % (0.0-2.0); EOSINOPHILS % 5.2 % (0.0-5.0); HEMATOCRIT. 26.1 % (42.0-52.0); HEMOGLOBIN. 8.5 g/dL (14.0-18.0); MEAN CORPUSCULAR HEMOGLOBIN 23.9 pg (28.0-32.0); MEAN CORPUSCULAR VOLUME 73.2 fL (80.0-94.0); MEAN PLATELET VOLUME 9.8 fl (7.4-10.4); NEUTROPHILS % 51.9 % (40.0-76.0); PLATELET 151 x1000/uL (130-400); RED BLOOD CELL COUNT 3.56 mill/uL (4.7-6.1); RED CELL DISTRIBUTION WIDTH 13.9 % (11.6-14.6)
[2018-05-09] MEDS: CALCIUM ACETATE 667MG CAPSULE PO SCH ×3 (09:37→17:54)
[2018-05-09] MEDS: ASPIRIN 81MG EC TABLET PO SCH (09:38)
[2018-05-09] MEDS: LABETALOL HCL 200MG TABLET PO SCH ×2 (09:38→21:08)
[2018-05-09 10:18] LABS: PHOSPHORUS 3.5 mg/dL (2.5-4.9)
[2018-05-09] MEDS: ATORVASTATIN CALCIUM 40MG TABLET PO SCH (21:08)
[2018-05-09] MEDS: FAMOTIDINE 20MG TABLET PO SCH (21:09)
[2018-05-09] MEDS: EPOETIN ALFA 4000UNITS/ML VIAL SUBCUT SCH (21:10)
[2018-05-10 04:00] VITALS: BP 130/75
[2018-05-10] MEDS: SODIUM CHLORIDE 0.9% INJ 3ML FLUSH IVF SCH ×3 (05:38→21:33)
[2018-05-10] MEDS: MINOXIDIL 2.5MG TABLET PO SCH ×2 (05:39→18:55)
[2018-05-10 08:00] VITALS: BP 146/82
[2018-05-10] MEDS: ASPIRIN 81MG EC TABLET PO SCH (09:29)
[2018-05-10] MEDS: LABETALOL HCL 200MG TABLET PO SCH ×2 (09:29→21:33)
[2018-05-10] MEDS: CALCIUM ACETATE 667MG CAPSULE PO SCH ×3 (09:29→18:55)
[2018-05-10 12:00] VITALS: BP 138/79
[2018-05-10 16:00] VITALS: BP 124/79
[2018-05-10 20:00] VITALS: BP 169/86
[2018-05-10] MEDS: ATORVASTATIN CALCIUM 40MG TABLET PO SCH (21:32)
[2018-05-10] MEDS: FAMOTIDINE 20MG TABLET PO SCH (21:32)
[2018-05-11] VITALS: BP 153/82
[2018-05-11 04:00] VITALS: BP 146/70
[2018-05-11 05:12] LABS: BASOPHILS % 0.7 % (0.0-2.0); EOSINOPHILS % 4.7 % (0.0-5.0); HEMATOCRIT. 27.1 % (42.0-52.0); HEMOGLOBIN. 8.7 g/dL (14.0-18.0); LYMPHOCYTES % 21.7 % (20.0-50.0); MEAN CORPUSCULAR HEMOGLOBIN 23.7 pg (28.0-32.0); MEAN PLATELET VOLUME 9.9 fl (7.4-10.4); NEUTROPHILS % 60.9 % (40.0-76.0); PLATELET 158 x1000/uL (130-400); RED BLOOD CELL COUNT 3.66 mill/uL (4.7-6.1); RED CELL DISTRIBUTION WIDTH 14.1 % (11.6-14.6)
[2018-05-11] MEDS: MINOXIDIL 2.5MG TABLET PO SCH ×2 (06:57→18:55)
[2018-05-11] MEDS: SODIUM CHLORIDE 0.9% INJ 3ML FLUSH IVF SCH ×3 (06:59→21:48)
[2018-05-11 07:33] VITALS: BP 157/83
[2018-05-11 07:43] LABS: PHOSPHORUS 4.3 mg/dL (2.5-4.9)
[2018-05-11] MEDS: LABETALOL HCL 200MG TABLET PO SCH ×2 (09:10→21:50)
[2018-05-11] MEDS: CALCIUM ACETATE 667MG CAPSULE PO SCH ×3 (09:10→18:55)
[2018-05-11] MEDS: ASPIRIN 81MG EC TABLET PO SCH (09:10)
[2018-05-11 12:00] VITALS: BP 146/79
[2018-05-11 16:00] VITALS: BP 148/83
[2018-05-11 20:00] VITALS: BP 159/81
[2018-05-11] MEDS: ATORVASTATIN CALCIUM 40MG TABLET PO SCH (21:50)
[2018-05-11] MEDS: FAMOTIDINE 20MG TABLET PO SCH (21:50)
[2018-05-11] MEDS: EPOETIN ALFA 4000UNITS/ML VIAL SUBCUT SCH (21:51)
[2018-05-12 00:07] VITALS: BP 144/82
[2018-05-12 04:00] VITALS: BP 149/86
[2018-05-12] MEDS: SODIUM CHLORIDE 0.9% INJ 3ML FLUSH IVF SCH ×3 (06:18→22:03)
[2018-05-12] MEDS: MINOXIDIL 2.5MG TABLET PO SCH ×2 (06:18→18:33)
[2018-05-12 07:46] LABS: BASOPHILS % 0.8 % (0.0-2.0); EOSINOPHILS % 4.1 % (0.0-5.0); HEMATOCRIT. 28.2 % (42.0-52.0); LYMPHOCYTES % 22.5 % (20.0-50.0); MEAN CORPUSCULAR HEMOGLOBIN 23.6 pg (28.0-32.0); MEAN CORPUSCULAR VOLUME 74.3 fL (80.0-94.0); MEAN PLATELET VOLUME 10.2 fl (7.4-10.4); MONOCYTES % 14.6 % (2.0-8.0); PLATELET 159 x1000/uL (130-400)
[2018-05-12 08:00] VITALS: BP 137/69
[2018-05-12 08:15] LABS: PHOSPHORUS 4.3 mg/dL (2.5-4.9)
[2018-05-12] MEDS: CALCIUM ACETATE 667MG CAPSULE PO SCH ×3 (09:29→18:33)
[2018-05-12] MEDS: ASPIRIN 81MG EC TABLET PO SCH (09:29)
[2018-05-12] MEDS: LABETALOL HCL 300MG TABLET PO SCH ×2 (09:30→22:03)
[2018-05-12] MEDS ORDERED: LABETALOL HCL 300MG TABLET PO SCH (09:50)
[2018-05-12 12:00] VITALS: BP 145/78
[2018-05-12 16:00] VITALS: BP 134/79
[2018-05-12 20:00] VITALS: BP 158/91
[2018-05-12] MEDS: ATORVASTATIN CALCIUM 40MG TABLET PO SCH (22:02)
[2018-05-12] MEDS: FAMOTIDINE 20MG TABLET PO SCH (22:03)
[2018-05-13] VITALS: BP 136/71
[2018-05-13 04:00] VITALS: BP 140/79
[2018-05-13] MEDS: SODIUM CHLORIDE 0.9% INJ 3ML FLUSH IVF SCH ×3 (06:32→22:00)
[2018-05-13] MEDS: MINOXIDIL 2.5MG TABLET PO SCH ×2 (06:32→18:53)
[2018-05-13 08:00] VITALS: BP 132/73
[2018-05-13] MEDS: LABETALOL HCL 300MG TABLET PO SCH ×2 (09:02→21:25)
[2018-05-13] MEDS: ASPIRIN 81MG EC TABLET PO SCH (09:02)
[2018-05-13] MEDS: CALCIUM ACETATE 667MG CAPSULE PO SCH ×3 (09:02→18:53)
[2018-05-13 12:00] VITALS: BP 131/68
[2018-05-13 16:00] VITALS: BP 137/65
[2018-05-13 20:00] VITALS: BP 137/68
[2018-05-13] MEDS: FAMOTIDINE 20MG TABLET PO SCH (21:25)
[2018-05-14] VITALS: BP 123/67
[2018-05-14 04:00] VITALS: BP 135/70
[2018-05-14] MEDS: MINOXIDIL 2.5MG TABLET PO SCH ×2 (05:19→17:56)
[2018-05-14] MEDS: SODIUM CHLORIDE 0.9% INJ 3ML FLUSH IVF SCH ×3 (05:20→21:04)
[2018-05-14 06:58] LABS: HEMOGLOBIN. 8.5 g/dL (14.0-18.0); MEAN CORPUSCULAR HEMOGLOBIN 23.6 pg (28.0-32.0); MEAN CORPUSCULAR VOLUME 74.5 fL (80.0-94.0); MEAN PLATELET VOLUME 10.2 fl (7.4-10.4); PLATELET 158 x1000/uL (130-400); RED BLOOD CELL COUNT 3.62 mill/uL (4.7-6.1); RED CELL DISTRIBUTION WIDTH 14.1 % (11.6-14.6)
[2018-05-14 08:00] VITALS: BP 111/84
[2018-05-14 12:00] VITALS: BP 137/72
[2018-05-14] MEDS: CALCIUM ACETATE 667MG CAPSULE PO SCH ×3 (12:20→17:55)
[2018-05-14] MEDS: ASPIRIN 81MG EC TABLET PO SCH (12:21)
[2018-05-14] MEDS: LABETALOL HCL 300MG TABLET PO SCH ×2 (12:21→21:03)
[2018-05-14 16:00] VITALS: BP 119/66
[2018-05-14 18:21] LABS: PLATELET ESTIMATE NORMAL
[2018-05-14 20:00] VITALS: BP 129/63
[2018-05-14] MEDS: FAMOTIDINE 20MG TABLET PO SCH (21:02)
[2018-05-14] MEDS: ATORVASTATIN CALCIUM 40MG TABLET PO SCH (21:02)
[2018-05-14] MEDS: EPOETIN ALFA 4000UNITS/ML VIAL SUBCUT SCH (21:04)
[2018-05-15] VITALS: BP 126/72
[2018-05-15 04:00] VITALS: BP 144/79
[2018-05-15] MEDS: MINOXIDIL 2.5MG TABLET PO SCH ×2 (05:19→17:14)
[2018-05-15] MEDS: SODIUM CHLORIDE 0.9% INJ 3ML FLUSH IVF SCH ×3 (05:20→21:24)
[2018-05-15 08:00] VITALS: BP 144/76
[2018-05-15] MEDS: CALCIUM ACETATE 667MG CAPSULE PO SCH ×3 (08:59→17:14)
[2018-05-15] MEDS: ASPIRIN 81MG EC TABLET PO SCH (08:59)
[2018-05-15] MEDS: LABETALOL HCL 300MG TABLET PO SCH ×2 (09:00→21:24)
[2018-05-15 12:00] VITALS: BP 142/78
[2018-05-15 16:00] VITALS: BP 138/76
[2018-05-15 20:00] VITALS: BP 162/91
[2018-05-15] MEDS: FAMOTIDINE 20MG TABLET PO SCH (21:24)
[2018-05-15] MEDS: ATORVASTATIN CALCIUM 40MG TABLET PO SCH (21:24)
[2018-05-16] VITALS: BP 140/81
[2018-05-16 04:00] VITALS: BP 137/74
[2018-05-16 07:18] LABS: HEMATOCRIT. 26.1 % (42.0-52.0); HEMOGLOBIN. 8.2 g/dL (14.0-18.0); MEAN CORPUSCULAR VOLUME 76.1 fL (80.0-94.0); MEAN PLATELET VOLUME 10.2 fl (7.4-10.4); PLATELET 140 x1000/uL (130-400); RED BLOOD CELL COUNT 3.43 mill/uL (4.7-6.1); RED CELL DISTRIBUTION WIDTH 14.9 % (11.6-14.6)
[2018-05-16 08:00] VITALS: BP 136/76
[2018-05-16] MEDS ORDERED: SODIUM POLYSTYRENE SULFONATE 15 G/60 ML BOT PO SCH (10:30)
[2018-05-16] MEDS: ASPIRIN 81MG EC TABLET PO SCH (10:44)
[2018-05-16] MEDS: CALCIUM ACETATE 667MG CAPSULE PO SCH ×2 (10:44→14:18)
[2018-05-16] MEDS: MINOXIDIL 2.5MG TABLET PO SCH (10:44)
[2018-05-16] MEDS: LABETALOL HCL 300MG TABLET PO SCH (10:45)
[2018-05-16] MEDS ORDERED: ASPI-1158 PO (11:01)
[2018-05-16] MEDS ORDERED: LIP40 PO (11:01)
[2018-05-16] MEDS ORDERED: MINO2.5T2 MT (11:02)
[2018-05-16] MEDS ORDERED: CALC667T2 PO (11:02)
[2018-05-16] MEDS ORDERED: LABE300T3 PO (11:02)
[2018-05-16] MEDS ORDERED: MECL-127 PO (11:03)
[2018-05-16 11:04] VITALS: BP 131/75
[2018-05-16 12:08] VITALS: BP 129/75
[2018-05-16] MEDS: SODIUM CHLORIDE 0.9% INJ 3ML FLUSH IVF SCH (14:00)
[2018-05-16 14:12] LABS: PLATELET ESTIMATE NORMAL
== END 2018-05-16 15:30 | disposition home or self-care (01) | DRG 45 ==
LOC: EDBEDREQ 21:22 → EDBEDREQTM 21:22 → EDBEDREQSVC 21:22 → ER 21:35 → 3WST 22:12 → EDBEDREQ 22:32 → EDBEDREQTM 22:32 → ENRESERV 22:52 → 5WST 04-25 15:05 → 7WST 04-27 12:05
PROVIDERS: ADMIT Internal Medicine; ATTEND Internal Medicine
PROC: 0JH63XZ Insertion of Tunneled Vascular Access Device into Chest Subcutaneous Tissue and Fascia, Percutaneous Approach (ICD-10-PCS; principal; 2018-04-27)
PROC: 02HV33Z Insertion of Infusion Device into Superior Vena Cava, Percutaneous Approach (ICD-10-PCS; 2018-04-27)
PROC: B5181ZA Fluoroscopy of Superior Vena Cava using Low Osmolar Contrast, Guidance (ICD-10-PCS; 2018-04-27)
PROC: B548ZZA Ultrasonography of Superior Vena Cava, Guidance (ICD-10-PCS; 2018-04-27)
PROC: 5A1D70Z Performance of Urinary Filtration, Intermittent, Less than 6 Hours Per Day (ICD-10-PCS; 2018-04-27)
PROC: 5A1D70Z Performance of Urinary Filtration, Intermittent, Less than 6 Hours Per Day (ICD-10-PCS; 2018-04-30)
PROC: 5A1D70Z Performance of Urinary Filtration, Intermittent, Less than 6 Hours Per Day (ICD-10-PCS; 2018-05-02)
PROC: 5A1D70Z Performance of Urinary Filtration, Intermittent, Less than 6 Hours Per Day (ICD-10-PCS; 2018-05-04)
PROC: 5A1D70Z Performance of Urinary Filtration, Intermittent, Less than 6 Hours Per Day (ICD-10-PCS; 2018-05-07)
PROC: 5A1D70Z Performance of Urinary Filtration, Intermittent, Less than 6 Hours Per Day (ICD-10-PCS; 2018-05-09)
PROC: 5A1D70Z Performance of Urinary Filtration, Intermittent, Less than 6 Hours Per Day (ICD-10-PCS; 2018-05-11)
PROC: 5A1D70Z Performance of Urinary Filtration, Intermittent, Less than 6 Hours Per Day (ICD-10-PCS; 2018-05-14)
DX: I63.9 Cerebral infarction, unspecified (principal); N17.9 Acute kidney failure, unspecified; I12.0 Hypertensive chronic kidney disease with stage 5 chronic kidney disease or end stage renal disease; E78.5 Hyperlipidemia, unspecified; E83.39 Other disorders of phosphorus metabolism; I16.0 Hypertensive urgency; I16.1 Hypertensive emergency; D64.9 Anemia, unspecified; N18.6 End stage renal disease; Z79.899 Other long term (current) drug therapy; Z91.14 Patient's other noncompliance with medication regimen; Z99.2 Dependence on renal dialysis
CPT/HCPCS: 12001; 36415; 36558; 70551; 71045; 76770; 76937; 77001; 80048; 80061; 82570; 82607; 82728; 82746; 83036; 83540; 83550; 83735; 83880; 84100; 84156; 84300; 84484; 86705; 86709; 86803; 87340; 92610; 93005; 93306; 93880; 96374; 96375; 96376; 97110; 97112; 97116; 97163; 97166; 97530; 97535; 99291; C1750; C1769; J0360; J0690; J0885; J1200; J1642; J1650; J1885; J2765; J3010; J3490; J7030; J7040; J7050; J8597